=== PATIENT | male | born 1950 | race Caucasian/White ===

== ENCOUNTER 2017-07-18 06:34 | Day surgery (SDC) | payer MEDICARE, BC ==
[2017-07-18] MEDS ORDERED: Lactated Ringers 1,000 ML IV SCH (06:45)
[2017-07-18] MEDS ORDERED: fentaNYL 100 MCG/2 ML SDV IV ONE (08:15)
[2017-07-18] MEDS ORDERED: Phenylephrine 1% 10 MG/ML SDV IV ONE (08:15)
[2017-07-18] MEDS ORDERED: Glycopyrrolate 0.2 MG/ML 5 ML MDV IV ONE (08:15)
[2017-07-18] MEDS ORDERED: Lactated Ringers 1,000 ML IV ONE (08:15)
[2017-07-18] MEDS ORDERED: Vasopressin 20 Units/1 ML MDV IV ONE (08:15)
[2017-07-18] MEDS ORDERED: Midazolam 1 MG/ML 2 ML SDV IV ONE (08:15)
[2017-07-18] MEDS ORDERED: Propofol 200 MG/20 ML SDV IV ONE (08:15)
[2017-07-18] MEDS ORDERED: Ondansetron 4 MG/2 ML SDV IVPUSH ONE (08:15)
[2017-07-18] MEDS ORDERED: Simethicone Drops 40 MG/0.6 ML 30 ML Bottle ONE (08:26)
[2017-07-18] MEDS ORDERED: Bupivacaine 0.25% 30 ML SDV INJECT ONE (09:01)
[2017-07-18] MEDS ORDERED: Lidocaine 1% with EPINEPHrine 1:100,000 20 ML MDV INJECT ONE (09:01)
--- NOTE | 2017-07-18 09:33 | PCM.HPR ---
H & P Addendum review - H & P Addendum Review Date of Original H & P: 07/15/17 Date Reviewed: 07/18/17 Time Reviewed: 08:00 Patient was Examined: No Changes
--- NOTE | 2017-07-18 09:35 | PCM.OPNOTE ---
- General Post-Op/Procedure Note Date of Surgery/Procedure: 07/18/17 Operative Procedure(s): Colonoscopy with polypectomy. Excision lipoma right hip Findings: Colon Polyps Large 10X11 cm right hip lipoma Pre Op Diagnosis: Colon Screening. R Hip lipoma Post-Op Diagnosis: Same Anesthesia Technique: Local, MAC Primary Surgeon: Jason Mcgrath Anesthesia Provider: Rick Rosas Pathology: Colon Polyps R hip lipoma EBL in mLs: 1 Complications: None Condition: Good
[2017-07-18 10:47] VITALS: BP 109/64
--- NOTE | 2017-07-18 17:05 | OR ---
DATE OF OPERATION: 07/18/2017 SURGEON: Jason Mcgrath MD PREOPERATIVE DIAGNOSES: 1. Colon screening. 2. Right hip mass. POSTOPERATIVE DIAGNOSES: 1. Colon polyps. 2. Right hip mass. PROCEDURES: 1. Colonoscopy with polypectomies. 2. Excision of right hip lipoma, 10 x 11 cm. ANESTHESIA: Local with IV sedation. DESCRIPTION OF PROCEDURE: The patient was brought to the operating room after surgical site had been initialed by myself on the patient. A time-out was performed. IV sedation was administered. Digital rectal exam was performed which was normal. The colonoscope was inserted and advanced to the level of the cecum without difficulty. Cecal position was confirmed by identifying the appendiceal lumen and ileocecal valve. Prep was good and surfaces were well visualized. Upon withdrawing the scope, there was a small 5 mm sessile polyp in the proximal ascending colon that was removed with the cautery snare. In the transverse colon, he had two more polyps measuring approximately 6 mm in diameter that were removed with the cautery snare. In the sigmoid colon, was a larger semi pedunculated polyp measuring approximately 7 mm in diameter that was removed with cautery snare and retrieved in the polyp trap. All these will be sent for pathology review. A couple of diverticula were seen throughout the colon. Rectum was normal and retroflexion was normal. Air was removed and the scope withdrawn. The patient tolerated the procedure well. Next, the patient was kept on his left side. His right hip area was prepped and draped sterilely. A 50:50 mixture of 1% Lidocaine with epinephrine and 0.25% Marcaine was infiltrated around the mass. An elliptical skin incision was made and subcutaneous tissue to plane dissected circumferentially around the mass consistent with a lipoma. On the surface, the plane was easily identified. At the base of it, there was more adherent to the subcutaneous fat. With sharp dissection and electrocautery, I this completely. One small bleeder was clamped and tied with 3-0 Vicryl. The specimen measured 10 x 11 cm in diameter and is approximately 2-cm thick. The wound was assured to be hemostatic and closed in two layers with 3-0 Vicryl subcutaneous sutures and a running 4-0 Vicryl subcuticular suture. Benzoin and Steri-Strips were placed and sterile dressing applied. The patient tolerated the procedure well. Estimated blood loss was 1 mL. He returned to postanesthesia in stable condition. /[id number] DAVID/FANNY
== END 2017-07-18 10:45 | disposition home or self-care (01) ==
LOC: FB.SDS 06:34
PROVIDERS: ATTEND Surgery
DX: D12.2 Benign neoplasm of ascending colon (principal); D12.3 Benign neoplasm of transverse colon; D12.5 Benign neoplasm of sigmoid colon; K57.30 Diverticulosis of large intestine without perforation or abscess without bleeding; I10 Essential (primary) hypertension; Z98.890 Other specified postprocedural states; Z79.899 Other long term (current) drug therapy; F17.210 Nicotine dependence, cigarettes, uncomplicated
CPT/HCPCS: 00400; 11406; 12034; 45385; 88304; 88305; A9270; J2250; J2370; J2405; J2704; J3010; J3490; J7120

== ENCOUNTER 2022-02-21 11:55 | Observation (INO) | payer MEDICARE ==
[2022-02-21] MEDS ORDERED: Ondansetron 4 MG/2 ML SDV IVPUSH STA (12:19)
[2022-02-21] MEDS ORDERED: Atropine/Diphenoxylate 0.025-2.5 MG Tab PO STA (12:19)
[2022-02-21] MEDS: Sodium Chloride 0.9% 10 ML Syringe FLUSH PRN ×2 (12:20→12:33)
[2022-02-21] MEDS ORDERED: Sodium Chloride 0.9% 1,000 ML IV SCH (12:30)
[2022-02-21] MEDS ORDERED: Iopamidol 755 Mg/ML 75 ML Bottle IV ONE (13:04)
[2022-02-21] MEDS ORDERED: Sodium Chloride 0.9% 10 ML Syringe FLUSH PRN (13:08)
[2022-02-21] MEDS: Sodium Chloride 0.9% 1,000 ML IV SCH ×2 (13:42→20:07)
[2022-02-21] MEDS ORDERED: metroNIDAZOLE/Normal Saline 500 MG in Premix Bag 1 BAG IV SCH (14:30)
[2022-02-21] MEDS: Ciprofloxacin in D5W 400 MG in Premix Bag 1 BAG IV SCH ×2 (14:44)
[2022-02-21] MEDS ORDERED: Ondansetron 4 MG/2 ML SDV IV PRN (16:03)
[2022-02-21] MEDS ORDERED: Acetaminophen 500 MG Tab PO PRN (16:08)
[2022-02-21] MEDS: metroNIDAZOLE/Normal Saline 500 MG in Premix Bag 1 BAG IV SCH ×2 (16:10→23:43)
[2022-02-21] MEDS: Enoxaparin 30 MG/0.3 ML Syringe SUBCUT SCH (18:25)
[2022-02-22] MEDS: Sodium Chloride 0.9% 1,000 ML IV SCH ×3 (06:11→23:11)
[2022-02-22] MEDS: metroNIDAZOLE/Normal Saline 500 MG in Premix Bag 1 BAG IV SCH ×3 (06:53→23:11)
[2022-02-22] MEDS ORDERED: Lisinopril 20 MG Tab PO SCH (09:00)
[2022-02-22] MEDS: Ciprofloxacin in D5W 400 MG in Premix Bag 1 BAG IV SCH ×2 (15:04)
[2022-02-22] MEDS: Enoxaparin 30 MG/0.3 ML Syringe SUBCUT SCH (16:49)
[2022-02-23] MEDS: Sodium Chloride 0.9% 1,000 ML IV SCH ×2 (06:28→09:00)
[2022-02-23] MEDS: metroNIDAZOLE/Normal Saline 500 MG in Premix Bag 1 BAG IV SCH ×3 (06:29→23:33)
[2022-02-23] MEDS: Calcium Carbonate 500 MG Tablet PO SCH (09:21)
[2022-02-23] MEDS ORDERED: Sodium Chloride 0.9% 1,000 ML IV SCH (10:00)
[2022-02-23] MEDS: Ciprofloxacin in D5W 400 MG in Premix Bag 1 BAG IV SCH ×2 (14:42)
[2022-02-23] MEDS: Enoxaparin 30 MG/0.3 ML Syringe SUBCUT SCH (16:08)
[2022-02-24] MEDS ORDERED: Ciprofloxacin in D5W 400 MG in Premix Bag 1 BAG IV SCH ×2 (02:30)
[2022-02-24] MEDS: metroNIDAZOLE/Normal Saline 500 MG in Premix Bag 1 BAG IV SCH ×2 (06:45→06:47)
[2022-02-24] MEDS ORDERED: Lisinopril 10 MG Tab PO SCH (09:00)
[2022-02-24] MEDS: Calcium Carbonate 500 MG Tablet PO SCH (09:35)
[2022-02-24 09:48] VITALS: BP 118/64
[2022-02-24 11:18] VITALS: PULSE 57
== END 2022-02-24 12:25 | disposition home or self-care (01) ==
LOC: FB.ED 11:55 → FB.MS 16:28
PROVIDERS: ADMIT Family Medicine; ATTEND Family Medicine
DX: A09 Infectious gastroenteritis and colitis, unspecified (principal); E86.0 Dehydration; I10 Essential (primary) hypertension; F17.210 Nicotine dependence, cigarettes, uncomplicated; N17.9 Acute kidney failure, unspecified; R63.4 Abnormal weight loss; Z68.1 Body mass index [BMI] 19.9 or less, adult; Z20.822 Contact with and (suspected) exposure to COVID-19; Z79.899 Other long term (current) drug therapy
CPT/HCPCS: 36415; 71045; 74177; 80048; 80053; 81001; 82150; 83605; 83690; 84443; 85025; 87040; 87045; 87046; 87077; 87186; 87427; 93005; 93010; 96365; 96366; 96367; 96372; 96376; 99285; 99285-25; A9270-GY; G0378; J0744; J1650; J2405; J3490; J7030; Q9967; U0002